=== PATIENT | female | born 1995 | race African-American/Black ===

== ENCOUNTER 2017-06-30 21:03 | Emergency (ER) | payer OTHER ==
[~2017-06-30] VITALS: Ht 160 cm; Wt 64.0 kg
[2017-07-01 03:56] VITALS: BP 115/79
[2017-07-01] MEDS ORDERED: AMOXICILLIN/POTASSIUM CLAVULANATE 875/125MG TAB PO ONE (04:45)
== END 2017-07-01 05:23 | disposition home or self-care (01) ==
LOC: ER 22:44
DX: J32.9 Chronic sinusitis, unspecified (principal)
CPT/HCPCS: 99283